=== PATIENT | female | born 1975 | race Caucasian/White ===

== ENCOUNTER 2020-02-04 22:51 | Emergency (ER) | payer SELFPAY ==
[~2020-02-04] VITALS: Ht 162.6 cm; Wt 98.0 kg
--- NOTE | 2020-02-04 23:12 | NUR ---
PT AMBULATED BACK TO ROOM WITH A SMOOTH AND STEADY GAIT, NAD, RESP WNL, P/W/D, FCS no SOB, MAEx4, CHANGED INTO GOWN RESTING ON GURNEY, CALL LIGHT ON LAP. FILEMON SWENSON MD AT FOR EVAL AND POC.
--- NOTE | 2020-02-04 23:34 | NUR ---
pt given water and additonal warm blanket for comfort, lab at , [facility]. no change in current condition
[2020-02-04 23:52] LABS: BASOPHILS # (AUTO) 0.04 x10^3/uL (0-0.1); BASOPHILS % (AUTO) 1 % (0-1); EOSINOPHILS # (AUTO) 0.28 x10^3/uL (0-0.4); EOSINOPHILS % (AUTO) 4 % (1-7); LYMPHOCYTES # (AUTO) 2.89 x10^3/uL (1-3.4); LYMPHOCYTES % (AUTO) 40 % (22-44); MD NO; MEAN CORPUSCULAR HGB CONC 32.9 g/dL (32.4-35.8); MEAN CORPUSCULAR VOLUME 79.3 fL (80-100); MEAN PLATELET VOLUME 9.1 fL (7.4-10.4); MONOCYTES % (AUTO) 10 % (2-9); NEUTROPHILS # (AUTO) 3.38 x10^3/uL (1.8-6.8); NEUTROPHILS % (AUTO) 46 % (42-75); PLATELET COUNT 263 x10^3/uL (130-400); RED BLOOD COUNT 3.92 x10^6/uL (3.82-5.3); RED CELL DISTRIBUTION WIDTH 16.9 % (9.6-15.2)
--- NOTE | 2020-02-04 23:52 | NUR ---
PT AMBULATED TO AND FROM RESTROOM WITH A SMOOTH AND STEADY GAIT, PT ATTEMPT TO OBTAIN URINE SAMPLE. PT CONDITION UNCHANGED. WCTM. WAITING ON LAB RESULTS
[2020-02-04 23:57] LABS: ALANINE AMINOTRANSFERASE 111 U/L (12-78); ALBUMIN 3.3 g/dL (3.4-5.0); ANION GAP 10 mmol/L (5-15); CALCIUM 8.1 mg/dL (8.5-10.1); CHLORIDE 108 mmol/L (98-107); CREATININE 0.93 mg/dL (0.55-1.02)
[2020-02-05 00:01] LABS: ALKALINE PHOSPHATASE 77 U/L (45-117); BILIRUBIN,TOTAL 0.2 mg/dL (0.2-1.0); TROPONIN I < 0.015 ng/mL (0.000-0.045)
[2020-02-05 00:09] LABS: HCG UR SG 1.031 (1.003-1.030); MICROSCOPIC NOT IND
[2020-02-05 00:26] LABS: FREE T4 (FREE THYROXINE) 1.31 ng/dL (0.76-1.46)
--- NOTE | 2020-02-05 01:01 | NUR ---
pt resting in gurney, NAD, VSS, P/W/D, denies additional needs at this time, WCTM. waiting for labs results
--- NOTE | 2020-02-05 01:08 | NUR ---
Bedside report to Hannah POWELL, pt care transferred at this time.
[2020-02-05 01:29] VITALS: BP 98/65
== END 2020-02-05 01:30 | disposition home or self-care (01) ==
LOC: ED 23:23
DX: R60.0 Localized edema (principal); R10.9 Unspecified abdominal pain
CPT/HCPCS: 36415; 80053; 81003; 81025; 84439; 84443; 84484; 85025; 99283